=== PATIENT | female | born 1960 | race Caucasian/White ===

== ENCOUNTER 2021-03-18 12:14 | Emergency (ER) | payer OTHER ==
[2021-03-18] MEDS ORDERED: HYDROcodone/Acetaminophen 10/325 mg Tablet ONE (14:42)
== END 2021-03-18 15:59 | disposition home or self-care (01) ==
LOC: ERS 12:14
DX: S76.312A Strain of muscle, fascia and tendon of the posterior muscle group at thigh level, left thigh, initial encounter (principal); W18.2XXA Fall in (into) shower or empty bathtub, initial encounter